=== PATIENT | female | born 1950 | race Hispanic/Latino ===

== ENCOUNTER 2017-06-11 21:49 | Emergency (ER) | payer OTHER ==
[2017-06-11] MEDS ORDERED: TETRACAINE HCL 0.5% 4 ML OPHTH SOLN ONE (22:30)
[2017-06-11] MEDS ORDERED: FLUORESCEIN SODIUM 0.6 MG STRIP ONE (22:31)
[2017-06-11 23:48] LABS: BASOPHILS % (AUTO) 0.5 % (0.0-5.0); EOSINOPHILS % (AUTO) 4.3 % (0.0-8.0); HEMATOCRIT 37.2 % (36-48); LYMPHOCYTES % (AUTO) 23.3 % (21.0-51.0); MEAN CORPUSCULAR HEMOGLOBIN 25.6 pg (27.0-33.0); MEAN CORPUSCULAR HGB CONC 32.4 g/dL (32.0-36.0); MEAN CORPUSCULAR VOLUME 78.9 fL (79-99); MONOCYTES % (AUTO) 9.3 % (3.0-13.0); NEUTROPHILS % (AUTO) 62.6 % (40.0-77.0); PLATELET COUNT (AUTO) 271 K/uL (130-400); RED BLOOD CELL COUNT(AUTO) 4.72 MIL/uL (4.00-5.50)
[2017-06-11 23:49] LABS: CREATININE 0.7 mg/dL (0.5-1.5); POTASSIUM 4.1 mmol/L (3.5-5.1)
[2017-06-11 23:53] LABS: ALBUMIN 3.8 g/dL (3.5-5.0); BILIRUBIN,TOTAL 0.6 mg/dL (0.2-1.0)
[2017-06-12] MEDS ORDERED: ERYTHROMYCIN BASE 0.5% OPHTH OINT 1 GM TUBE ONE (00:37)
[2017-06-12] MEDS ORDERED: TRAMADOL HCL 50 MG TABLET ONE (00:50)
== END 2017-06-12 01:27 | disposition home or self-care (01) ==
LOC: EDH 21:49
DX: S05.01XA Injury of conjunctiva and corneal abrasion without foreign body, right eye, initial encounter (principal); M25.531 Pain in right wrist; M25.532 Pain in left wrist; I10 Essential (primary) hypertension; E11.9 Type 2 diabetes mellitus without complications; E78.5 Hyperlipidemia, unspecified; X58.XXXA Exposure to other specified factors, initial encounter; Y93.89 Activity, other specified; Y92.89 Other specified places as the place of occurrence of the external cause; Y99.8 Other external cause status
CPT/HCPCS: 36415; 80053; 85025; 85651; 86141

== ENCOUNTER → 2017-07-28 | Outpatient (CLI) | payer OTHER ==
[~2017-07-28] MED LIST: ALBUTEROL SULFATE 0.083% 2.5 MG/3 ML INH IH ONE
== END | disposition home or self-care (01) ==
LOC: RESP 08:12
PROVIDERS: ATTEND Internal Medicine
DX: J45.21 Mild intermittent asthma with (acute) exacerbation (principal)
CPT/HCPCS: 94060; 94727; 94729

== ENCOUNTER → 2018-08-16 | Outpatient (CLI) | payer OTHER | END | disposition home or self-care (01) | LOC: RAH 14:30 | PROVIDERS: ATTEND Internal Medicine | DX: M54.5 Low back pain (principal); M47.816 Spondylosis without myelopathy or radiculopathy, lumbar region | CPT/HCPCS: 72100; 72170 ==

== ENCOUNTER 2019-01-12 17:17 | Emergency (ER) | payer OTHER ==
[2019-01-12] MEDS ORDERED: ACETAMINOPHEN EXTRA STRENGTH 500 MG TABLET ONE (17:51)
== END 2019-01-12 18:42 | disposition home or self-care (01) ==
LOC: EDH 17:17
DX: S80.212A Abrasion, left knee, initial encounter (principal); M25.512 Pain in left shoulder; I10 Essential (primary) hypertension; E11.9 Type 2 diabetes mellitus without complications; E78.5 Hyperlipidemia, unspecified; W01.0XXA Fall on same level from slipping, tripping and stumbling without subsequent striking against object, initial encounter; Y93.89 Activity, other specified; Y92.89 Other specified places as the place of occurrence of the external cause; Y99.8 Other external cause status
CPT/HCPCS: 73030; 73562; 82948

== ENCOUNTER → 2019-03-02 | Outpatient (CLI) | payer OTHER | END | disposition home or self-care (01) | LOC: RAH 08:33 | PROVIDERS: ATTEND Internal Medicine | DX: M47.26 Other spondylosis with radiculopathy, lumbar region (principal); M48.061 Spinal stenosis, lumbar region without neurogenic claudication | CPT/HCPCS: 72148 ==

== ENCOUNTER → 2019-04-03 | Outpatient (CLI) | payer OTHER | END | disposition home or self-care (01) | LOC: RAH 11:54 | PROVIDERS: ATTEND Internal Medicine | DX: Z01.818 Encounter for other preprocedural examination (principal) | CPT/HCPCS: 71046 ==

== ENCOUNTER → 2019-05-15 | Outpatient (CLI) | payer OTHER | END | disposition home or self-care (01) | LOC: RAH 08:12 | PROVIDERS: ATTEND Internal Medicine | DX: K76.0 Fatty (change of) liver, not elsewhere classified (principal) | CPT/HCPCS: 76705 ==

== ENCOUNTER → 2019-08-03 | Outpatient (CLI) | payer OTHER | END | disposition home or self-care (01) | LOC: RAH 09:11 | PROVIDERS: ATTEND Internal Medicine | DX: Z12.31 Encounter for screening mammogram for malignant neoplasm of breast (principal) | CPT/HCPCS: 77067 ==

== ENCOUNTER → 2022-07-06 | Outpatient (CLI) | payer OTHER ==
[~2022-07-06] MED LIST changes: +ACET-2079 PO; -ALBUTEROL SULFATE 0.083% 2.5 MG/3 ML INH IH ONE; +METF-444 PO; +METH4TAB3 PO; +MONT-39 PO; +PENI500T2 PO; +PRED1TAB PO
== END | disposition home or self-care (01) ==
LOC: RAH 09:41
PROVIDERS: ATTEND Internal Medicine
DX: Z12.31 Encounter for screening mammogram for malignant neoplasm of breast (principal)
CPT/HCPCS: 77067

== ENCOUNTER → 2022-11-02 | Outpatient (CLI) | payer OTHER | END | disposition home or self-care (01) | LOC: RAH 10:00 | PROVIDERS: ATTEND Orthopaedic Surgery | DX: M19.012 Primary osteoarthritis, left shoulder (principal); M25.712 Osteophyte, left shoulder; M25.512 Pain in left shoulder | CPT/HCPCS: 73221 ==

== ENCOUNTER → 2023-09-01 | Outpatient (CLI) | payer OTHER | END | disposition home or self-care (01) | LOC: RAH 09:49 | PROVIDERS: ATTEND Internal Medicine | DX: M47.815 Spondylosis without myelopathy or radiculopathy, thoracolumbar region (principal); M47.818 Spondylosis without myelopathy or radiculopathy, sacral and sacrococcygeal region; S30.0XXS Contusion of lower back and pelvis, sequela; M43.17 Spondylolisthesis, lumbosacral region; M43.18 Spondylolisthesis, sacral and sacrococcygeal region; M54.50 Low back pain, unspecified; W19.XXXS Unspecified fall, sequela | CPT/HCPCS: 72070; 72100; 72220 ==

== ENCOUNTER 2023-09-22 09:24 | Emergency (ER) | payer OTHER ==
[~2023-09-22] VITALS: Ht 154.9 cm; Wt 69.4 kg
[2023-09-22 09:57] LABS: BASOPHILS # (AUTO) 0.02 K/uL (0.00-0.20); BASOPHILS % (AUTO) 0.2 % (0.0-5.0); EOSINOPHILS # (AUTO) 0.01 K/uL (0.00-0.70); EOSINOPHILS % (AUTO) 0.1 % (0.0-8.0); HEMATOCRIT 32.7 % (36-48); IMMATURE GRANULOCYTE ABSOLUTE 0.05 K/uL (0-1); LYMPHOCYTES # (AUTO) 0.8 K/uL (1.0-4.8); LYMPHOCYTES % (AUTO) 8.7 % (21.0-51.0); MEAN CORPUSCULAR HEMOGLOBIN 27.5 pg (27.0-33.0); MEAN CORPUSCULAR HGB CONC 32.4 g/dL (32.0-36.0); MEAN CORPUSCULAR VOLUME 84.9 fL (79-99); MONOCYTES # (AUTO) 0.9 K/uL (0.1-1.0); MONOCYTES % (AUTO) 9.7 % (3.0-13.0); NEUTROPHILS # (AUTO) 7.6 K/uL (1.8-7.7); NEUTROPHILS % (AUTO) 80.8 % (40.0-77.0); PLATELET COUNT (AUTO) 199 K/uL (130-400); RED BLOOD CELL COUNT(AUTO) 3.85 MIL/uL (4.00-5.50); WHITE BLOOD COUNT (AUTO) 9.4 K/uL (4.8-10.8)
[2023-09-22 10:03] LABS: CREATININE 0.7 mg/dL (0.5-1.0); POTASSIUM 3.6 mmol/L (3.5-5.1)
[2023-09-22 10:16] LABS: INFLUENZA TYPE A Negative For Type A (NEGATIVE); INFLUENZA TYPE B Negative For Type B (NEGATIVE)
[2023-09-22 10:19] LABS: SARS-CoV-2, RNA, NAAT POSITIVE SARS CoV-2 (NEGATIVE)
[2023-09-22] MEDS ORDERED: METH4TAB3 PO (10:39)
[2023-09-22] MEDS ORDERED: BENZ-39 PO (10:39)
[2023-09-22] MEDS ORDERED: AZIT250T9 PO (10:39)
[2023-09-22 11:19] VITALS: BP 144/81; PULSE 97; RESP 20; O2SAT 99
== END 2023-09-22 10:45 | disposition home or self-care (01) ==
LOC: EDH 09:24
DX: U07.1 COVID-19 (principal); E11.9 Type 2 diabetes mellitus without complications; I10 Essential (primary) hypertension; M19.90 Unspecified osteoarthritis, unspecified site; Z90.710 Acquired absence of both cervix and uterus; Z79.2 Long term (current) use of antibiotics; Z79.899 Other long term (current) drug therapy
CPT/HCPCS: 36415; 71045; 80048; 84145; 85025; 87635; 87804; 87880

== ENCOUNTER → 2024-07-13 | Outpatient (CLI) | payer OTHER ==
[~2024-07-13] MED LIST changes: +AZIT250T9 PO; +BENZ-39 PO
== END | disposition home or self-care (01) ==
LOC: RAH 13:44
PROVIDERS: ATTEND Internal Medicine
DX: Z12.31 Encounter for screening mammogram for malignant neoplasm of breast (principal)
CPT/HCPCS: 77067

== ENCOUNTER → 2024-08-08 | Outpatient (CLI) | payer OTHER ==
--- NOTE | 2024-08-08 12:23 | HMCIMG ---
DEXA BONE DENSITY SURVEY HISTORY: Bone density is ordered COMPARISON: None FINDINGS: Bone densitometry study was performed. Bone mineral density of the lumbar spine is 1.006 gram per centimeter square which corresponds to a T score of -0.4 and a Z score of 2.0. Bone mineral density of the left hip is 0.686 grams per centimeter square which corresponds to a T score of -2.1 and a Z score of -0.3. IMPRESSION: 1. Normal bone mineral density of the lumbar spine and osteopenia of left hip.
== END | disposition home or self-care (01) ==
LOC: RAH 10:31
DX: M85.88 Other specified disorders of bone density and structure, other site (principal)
CPT/HCPCS: 77080

== ENCOUNTER → 2024-10-06 | Outpatient (CLI) | payer OTHER ==
--- NOTE | 2024-10-07 07:04 | HMCIMG ---
EXAMINATION: ULTRASOUND OF THE ABDOMEN (LIMITED) WITH COLOR DOPPLER. CLINICAL HISTORY: Elevated LFT. COMPARISON: Ultrasound of the abdomen dated 05/15/[address] abdomen and pelvis without contrast dated 11/21/2020. TECHNIQUE: Real-time grayscale ultrasound images of the abdomen. In addition, color Doppler is medically necessary to perform in order to evaluate vascularity and blood flow. FINDINGS: Liver: Bulky in caliber, the right hepatic lobe measures 17.8 cm in the craniocaudal dimension. There is increased echogenicity of the hepatic parenchyma. There is no focal hepatic abnormality or intrahepatic biliary ductal dilatation. There is normal spectral Doppler of the main portal vein. Gallbladder: Within normal limits with normal wall thickness (0.30 cm). No hyperemia or pericholecystic free fluid. There is no cholelithiasis. Common bile duct is normal in caliber, measuring 0.34 cm. Pancreas: Normal in caliber and echotexture. No calcification or dilated pancreatic duct. The right kidney is normal in caliber, the right kidney measures 10.9 x 4.2 x 4.5 cm in craniocaudal, AP, and transverse dimensions respectively. There is normal renal cortical thickness, and cortical echogenicity. There is no renal calculus or hydronephrosis. IMPRESSION: Hepatomegaly with hepatic steatosis. /[place]
== END | disposition home or self-care (01) ==
LOC: RAH 08:55
PROVIDERS: ATTEND Internal Medicine
DX: K76.0 Fatty (change of) liver, not elsewhere classified (principal); R16.0 Hepatomegaly, not elsewhere classified; R74.8 Abnormal levels of other serum enzymes
CPT/HCPCS: 76705

== ENCOUNTER → 2024-12-04 | Outpatient (CLI) | payer OTHER ==
--- NOTE | 2024-12-05 06:11 | HMCIMG ---
EXAMINATION: DUPLEX ULTRASOUND EXAMINATION OF THE BILATERAL LOWER EXTREMITY ARTERIES. CLINICAL HISTORY: Cramps and spasm. COMPARISON: None. FINDINGS: Peak systolic velocities within the right lower arteries are as follows: Common femoral artery: 92 cm/s. Superficial femoral artery: 71 cm/s at proximal, 67 cm/s at mid, and 89 cm/s at distal segments. Popliteal artery: 64 cm/s at proximal and 79 cm/s at distal segments. Posterior tibial artery: 63 cm/s. Anterior tibial artery: 51 cm/s. Dorsalis pedis artery: 71 cm/s. The right lower limb arteries demonstrate biphasic waveforms in all arteries. Peak systolic velocities within the left lower arteries are as follows: Common femoral artery: 84 cm/s. Superficial femoral artery: 78 cm/s at proximal, 83 cm/s at mid, and 65 cm/s at distal segments. Popliteal artery: 68 cm/s at proximal and 51 cm/s at distal segments. Posterior tibial artery: 45 cm/s. Anterior tibial artery: 41 cm/s. Dorsalis pedis artery: 59 cm/s. The left lower limb arteries demonstrate biphasic waveforms in all arteries. There is intimal wall thickening in both the lower limb arteries. IMPRESSION: Mild intimal wall thickening in both the lower limb arteries. Both lower limb arteries demonstrate biphasic waveforms. No flow limiting lesions. /[place]
== END | disposition home or self-care (01) ==
LOC: RAH 09:47
PROVIDERS: ATTEND Nurse Practitioner Family
DX: R25.2 Cramp and spasm (principal)
CPT/HCPCS: 93925